=== PATIENT | female | born 1970 | race African-American/Black ===

== ENCOUNTER → 2016-12-27 | Outpatient (CLI) | payer BC ==
[~2016-12-27] MED LIST: LISI1TAB7 PO
[2016-12-27 14:57] LABS: BASO # 0.1 x10^3/uL (0.0-0.2); BASO % 2 % (0-3); EOS % 2 % (0-3); HEMATOCRIT 37.8 % (36.0-47.0); HEMOGLOBIN 12.6 g/dL (12.0-15.5); LYMPH # 2.9 x10^3/uL (1.0-4.8); LYMPH % 46 % (24-48); MEAN CORPUSCULAR HEMOGLOBIN 30 pg (25-35); MEAN CORPUSCULAR HGB CONC 33 g/dL (31-37); MEAN CORPUSCULAR VOLUME 89 fL (79-100); MONO % 7 % (0-9); NEUT % 43 % (31-73); PLATELET COUNT 255 x10^3/uL (140-400); RED BLOOD COUNT 4.26 x10^6/uL (3.50-5.40); RED CELL DISTRIBUTION WIDTH 13.1 % (11.5-14.5); WHITE BLOOD COUNT 6.2 x10^3/uL (4.0-11.0)
--- NOTE | 2016-12-27 15:03 | EKG ---
[facility] [address] [place] [address] Test Date: 2016-12-27 Test Time: 15:04:36 Pat Name: ASHLIE MCNULTY Department: Room: Gender: F Ditch Cleaner: GRANT : 1970 Requested By: KAREEM BORDEN Order Number: [id number] Reading MD: Agapito Miller Measurements Intervals Austin Rate: 67 P: 52 NH: 174 QRS: 31 QRSD: 78 T: 19 QT: 426 QTc: 453 Interpretive Statements SINUS RHYTHM NON-SPECIFIC ST/T WAVE CHANGES IN THE ANTERIOR LEADS. Electronically Signed On 12-29-2016 13:07:17 CDT by Agapito Miller
[2016-12-27 15:08] LABS: CALCIUM 8.7 mg/dL (8.5-10.1); GFR 71.6
== END | disposition home or self-care (01) ==
LOC: SURGPAT 14:12
PROVIDERS: ATTEND Obstetrics & Gynecology
DX: I10 Essential (primary) hypertension (principal)
CPT/HCPCS: 36415; 80048; 85027; 93005

== ENCOUNTER 2017-01-04 07:13 | Observation (INO) | payer BC ==
[2017-01-04] VITALS (7 sets, daily range): BP systolic 115–126; BP diastolic 70–74
[~2017-01-04] VITALS: Ht 175.3 cm; Wt 83.9 kg
[~2017-01-04 07:13] MED LIST changes: +HYDROmorphone 2 MG/ML VIAL IV PRN; +IV RINGERS,LACTATED 1000ML 1,000 ML IV SCH; +LIDOCAINE 1% 1 ML SYRINGE. ID PRN; +MORPHINE SULFATE 2 MG/ML DISP.SYRIN. IV PRN; +ONDANSETRON PF 4 MG/2 ML VIAL. IV PRN; +PROCHLORPERAZINE 10 MG/2 ML VIAL. IV PRN; +fentaNYL PF VIAL 100 MCG/2 ML VIAL IV PRN
[2017-01-04] MEDS ORDERED: ESTROGENS, CONJ VAGINAL CREAM 30GM TUBE. ONE (07:38)
[2017-01-04] MEDS ORDERED: BUPIVACAINE-EPI 0.25%-1:200000 50 ML VIAL. ONE ×2 (07:38→07:39)
[2017-01-04] MEDS ORDERED: 0.9 % SODIUM CHLORIDE 50 ML VIAL. IJ ONE (07:39)
[2017-01-04 07:47] LABS: NEG OBC UR NEG; POS OBC UR POS
[2017-01-04] MEDS ORDERED: DEXAMETHASONE SOD PHOS 20 MG/5 ML VIAL. ONE (07:57)
[2017-01-04] MEDS ORDERED: PROPOFOL 20 ML IV ONE (07:57)
[2017-01-04] MEDS ORDERED: ONDANSETRON PF 4 MG/2 ML VIAL. ONE (07:57)
[2017-01-04] MEDS ORDERED: FAMOTIDINE 20 MG/2 ML VIAL ONE (07:57)
[2017-01-04] MEDS ORDERED: LIDOCAINE 2% PF Vial for OR 5 ML VIAL. ONE (07:57)
[2017-01-04] MEDS ORDERED: MIDAZOLAM HCL/PF 2 MG/2 ML VIAL. ONE (07:58)
[2017-01-04] MEDS ORDERED: ROCURONIUM 50 MG/5 ML VIAL. ONE (07:58)
[2017-01-04] MEDS ORDERED: fentaNYL PF VIAL 100 MCG/2 ML VIAL ONE (07:58)
[2017-01-04] MEDS ORDERED: KETOROLAC 60 MG/2 ML INJ FOR OR. ONE (08:58)
[2017-01-04] MEDS ORDERED: SEVOFLURANE > 120 MINUTES. IH ONE (09:38)
[2017-01-04] MEDS ORDERED: GLYCOPYRROLATE 1 MG/5 ML VIAL. ONE (09:52)
[2017-01-04] MEDS ORDERED: NEOSTIGMINE METHYLSULFATE 5 MG/5 ML SYRINGE. ONE (09:53)
--- NOTE | 2017-01-04 10:02 | DISCH ---
DISCHARGE INSTRUCTIONS Condition on Discharge Condition on Discharge: Stable Activity After Discharge Activity Instructions for Disc: Activity as tolerated, Avoid exertion, Progressive ambulation Lifting Instructions after Dis: No heavy lifting, Do not lift >10 pounds Exercise Instruction after Dis: Progress as tolerated Driving Instructions after Dis: No driving for 2 weeks Weight Bearing Status after Di: Full weight bearing, As tolerated Diet after Discharge Diet after Discharge: Regular Diet Texture: Regular Wound Incision Care Wound/Incision Care: Ice to area for comfort, May get incision wet Contacting the DR. after DC Call your doctor for: If your condition worsens Follow-Up Follow up with: as scheduled in office 2 weeks KAREEM BORDEN MD Jan 04, 2017 10:02
--- NOTE | 2017-01-04 10:04 | PDOC ---
BRIEF OPERATIVE NOTE Date: Jan 04, 2017 Pre-Op Diagnosis cystocele, uterine prolapse Post-Op Diagnosis same Procedure Performed LAVH, BSO, anterior repair Surgeon Smita Business Process Modeler John Anesthesiologist Nicolle Anesthesia Type: General Blood Loss 60cc IV Fluid see anesthesia report Urine Output 150cc- clear Specimens Obtained uterus, tubes, ovaries, vaginal mucosa Findings see dictation Complications none KAREEM BORDEN MD Jan 04, 2017 10:04
[2017-01-04] MEDS ORDERED: diphenhydrAMINE 50 MG/ML VIAL IV PRN (10:15)
[2017-01-04] MEDS ORDERED: METOCLOPRAMIDE HCL 10 MG/2 ML VIAL. IV PRN (10:15)
[2017-01-04] MEDS ORDERED: diphenhydrAMINE HCL 25 MG CAPSULE PO PRN (10:15)
[2017-01-04] MEDS ORDERED: HYDROmorphone 2 MG/ML VIAL IV PRN (10:15)
[2017-01-04] MEDS ORDERED: HYDROmorphone 2 MG/ML VIAL IM PRN (10:15)
[2017-01-04] MEDS ORDERED: HYDROcodone/APAP 5/325MG 1 TAB TABLET PO PRN (10:15)
[2017-01-04] MEDS ORDERED: 0.9 % SODIUM CHLORIDE 10 ML DISP.SYRIN. IV PRN (10:15)
[2017-01-04] MEDS ORDERED: KETOROLAC TROMETHAMINE 30 MG/ML INJ. IV PRN (10:15)
[2017-01-04] MEDS ORDERED: ALBUTEROL SULFATE 2.5 MG/3 ML NEBU. NEB PRN (10:15)
[2017-01-04] MEDS ORDERED: BISACODYL 10 MG SUPP.RECT. PR PRN (10:15)
[2017-01-04] MEDS ORDERED: NALOXONE 0.4 MG/ML VIAL. IV PRN (10:15)
[2017-01-04] MEDS ORDERED: MAG HYDROX/ALUMINUM HYD/SIMETH 30 ML ORAL.SUSP PO PRN (10:15)
[2017-01-04] MEDS ORDERED: LACTULOSE 20 GM/30 ML SOLUTION. PO PRN (10:15)
[2017-01-04] MEDS ORDERED: ZOLPIDEM 5 MG TABLET. PO PRN (10:15)
[2017-01-04] MEDS ORDERED: ESTRADIOL WEEKLY 0.1 MG PATCH. TD ONE (10:15)
[2017-01-04] MEDS ORDERED: ONDANSETRON PF 4 MG/2 ML VIAL. IV PRN (10:15)
[2017-01-04] MEDS ORDERED: CALCIUM CARBONATE 500 MG TAB.CHEW PO PRN (10:15)
[2017-01-04] MEDS ORDERED: SIMETHICONE 80 MG TAB.CHEW PO PRN (10:15)
[2017-01-04] MEDS: fentaNYL PF VIAL 100 MCG/2 ML VIAL IV PRN ×4 (10:17→11:11)
--- NOTE | 2017-01-04 11:01 | PDOC4 ---
Operative Note Operative Note Preoperative diagnosis: Uterine prolapse and cystocele Postoperative diagnosis: Same Procedure: LAVH and BSO and anterior repair Surgeon: Smita Television Repair Teacher: John Anesthesia: Gen. Estimated blood loss: 60 mL Urine output 125 mL Complications: none Procedure: After informed consent was obtained the patient was taken to the operating room and given a smooth induction of anesthesia without complications. She was placed in lithotomy position and her legs were placed in Bob stirrups. She received 2 g of Ancef prior to the beginning of the procedure. A bivalve speculum was placed in the vagina and the anterior lip of the cervix was grasped with a single-tooth tenaculum. The cervicovaginal junction was infiltrated with quarter percent Marcaine with epinephrine at 2, 4 , 8, and 10:00 on the cervix. A Valchev uterine manipulator was placed through the cervical os and attached to the tenaculum. The speculum was then removed. A Laguna catheter had been previously placed. We went above and a 5 mm incision was made at the umbilicus. The bladeless trocar was placed onto this incision. We used the Truecaller technology. The camera confirmed good trocar placement. 2 lateral ports were also placed under direct visualization. The patient was placed in Trendelenburg and the uterus was visualized. A LigaSure was used to cauterize across the round ligaments bilaterally. These ligaments were transected and the bladder flap was created anteriorly. We then elevated the tubes on both sides and visualize the ureters. We cauterized across the infundibulopelvic ligaments bilaterally. We then proceeded to cauterize the uterine arteries on both sides. We did this down to the level of the uterosacral ligaments. We then went below and a speculum was placed in the vagina. The tenaculum and uterine manipulators were removed. We then created a circumferential incision around the cervix. This was done with a knife. We then retracted the bladder superiorly using blunt dissection with a Ray-Juan Manuel. We entered the posterior peritoneum using Metzenbaum scissors and tag the peritoneum to the posterior vaginal wall. This was saved for later use. We then proceeded to clamp cut and ligate the uterosacral ligaments using Mary Jo transfixion sutures. These were tagged to the lateral vaginal sidewalls and saved for later use. Once the uterus was free it was removed from the pelvis. The peritoneum was then closed with a pursestring suture of 2-0 Vicryl. We then proceeded with the anterior repair. 2 De Witt clamps were placed on the anterior vaginal edges and the anterior vaginal wall was infiltrated with a solution of quarter percent Marcaine with epinephrine and injectable saline. This was done for hemostasis and to help delineate the surgical planes. The vagina was then opened in the midline and tagged with Allis clamps. The bladder and perivaginal tissue was retracted. This was done with a Ray-Juan Manuel. Several [id number] mattress sutures were placed to reduce the cystocele. The vagina was then trimmed and closed in the midline with a running locking stitch of 2-0 Vicryl. Once the vagina was closed we went back above to irrigate the pelvis. The pelvis was irrigated and no bleeding was noted. We sprayed Maurice on the raw surfaces to help with hemostasis. Again no bleeding was noted. We then removed the ports under direct visualization and allowed the gas to escape the ports were closed with an interrupted suture of 4-0 nylon. The subcutaneous tissue was infiltrated with anesthetic for patient comfort. The patient tolerated the procedure well AND SPONGE COUNTS WERE CORRECT AT THE END OF THE CASE. THERE WERE NO COMPLICATIONS. KAREEM BORDEN MD Jan 04, 2017 11:01
[2017-01-04] MEDS: IBUPROFEN 600 MG TABLET. PO PRN (19:41)
[2017-01-05 02:00] VITALS: BP 106/58
[2017-01-05 06:52] VITALS: BP 118/75
--- NOTE | 2017-01-05 08:44 | PDOC ---
SURGICAL PROGRESS NOTE Subjective Doing well. Mild pain. Ambulating and tolerating regular diet. No nausea. Just had catheter taken out and hasn't voided yet. Vital Signs Vital Signs Date Time Temp Pulse Resp B/P (MAP) Pulse Ox O2 Delivery O2 Flow Rate FiO2 01/05/17 06:52 97.7 61 18 118/75 (89) 96 Room Air 97.7 01/04/17 12:00 2.0 I&O Intake and Output 01/05/17 07:00 Intake Total 2550 ml Output Total 1300 ml Balance 1250 ml Intake Oral 1500 ml IV Total 1050 ml Output Urine Total 1300 ml PATIENT HAS A JAUREGUI: No General: Alert, Oriented X3, Cooperative, No acute distress HEENT: Mucous membr. moist/pink Abdomen: Other (incision c/d/i) Extremities: No clubbing, No cyanosis, No edema, Normal pulses, No tenderness/ swelling Skin: No rashes, No breakdown, No significant lesion Labs Laboratory Tests Test 01/04/17 07:15 01/04/17 14:55 Urine Test Negative (NEG) Hematocrit 37.6 % (36.0-47.0) Laboratory Tests Test 01/04/17 14:55 Hematocrit 37.6 % (36.0-47.0) I have reviewed the following labs, vitals Problem List [facility] repair. Plan for discharge today Problems: KAREEM BORDEN MD Jan 05, 2017 08:44
--- NOTE | 2017-01-05 08:48 | PDOC3 ---
Discharge Summary Visit Information Date of Admission: Jan 04, 2017 Date of Discharge: Jan 05, 2017 Admitting Diagnosis: pelvic organ prolapse Final Diagnosis same Brief Hospital Course Allergies Allergies Coded Allergies Type Severity Reaction Last Updated Verified titanium Allergy Mild 01/04/17 Yes Vital Signs Vital Signs Date Time Temp Pulse Resp B/P (MAP) Pulse Ox O2 Delivery O2 Flow Rate FiO2 01/05/17 06:52 97.7 61 18 118/75 (89) 96 Room Air 97.7 01/04/17 12:00 2.0 Lab Results Laboratory Tests Test 01/04/17 07:15 01/04/17 14:55 Urine Test Negative (NEG) Hematocrit 37.6 % (36.0-47.0) Laboratory Tests Test 01/04/17 14:55 Hematocrit 37.6 % (36.0-47.0) Brief Hospital Course Ms. Benitez is a 46 old F who presented with Pelvic organ prolapse. She presented yesterday for [facility] with bso and anterior repair. SHe did well in surgery. Today, she is ambulating and eating regular diet. Her catheter was just removed this morning, so she hasn't voided yet. Her VS are stable and her hct is stable. She is having minimal bleeding. SHe is ready for discharge pending urination. She wants to continue the climara patches until post op. Discharge Information Scheduled Lisinopril/Hydrochlorothiazide (Lisinopril-Hctz 20-25 Mg Tab), 1 TAB PO DAILY, ( Reported) KAREEM BORDEN MD Jan 05, 2017 08:48
[2017-01-05] MEDS: oxyCODONE/APAP 5/325 1 TAB TABLET PO PRN ×2 (08:51→14:19)
[2017-01-05] MEDS ORDERED: LISINOPRIL 20 MG TABLET PO SCH (09:00)
[2017-01-05] MEDS ORDERED: hydroCHLOROthiazide 25 MG TABLET PO SCH (09:00)
[2017-01-05] MEDS ORDERED: NON FORMULARY ITEM (Lisinopril/Hydrochlorothiazide (Lisinopril-Hctz 20-25 Mg Tab) 1 TAB) PO SCH (09:00)
[2017-01-05 11:10] VITALS: BP 119/74
[2017-01-05] MEDS: IBUPROFEN 600 MG TABLET. PO PRN (14:20)
--- NOTE | 2017-01-05 15:23 | PATHOLOGY ---
PATHOLOGY REPORT * * * * * * * * FINAL DIAGNOSIS: Uterus, cervix, both fallopian tubes and ovaries and vaginal mucosa, hysterectomy and bilateral salpingo-oophorectomy: - Uterine cervix with moderate chronic cervicitis and with squamous metaplasia. - Disordered proliferative phase endometrium without any evidence of hyperplasia or malignancy. - Adenomyoses. - Submucosal leiomyoma without any significant atypia, increased mitoses or necrosis. - Right fallopian tube and ovary with no diagnostic changes. - Left fallopian tube and ovary with no diagnostic changes. - Vaginal mucosa with no diagnostic changes. (SHA:[email or web address]; 01/05/2017) REPORT ELECTRONICALLY SIGNED BY: Vel Sorensen M.D. DATE/TIME: 01/05/2017 15:21 * * * * * * * * GROSS PATHOLOGY: The specimen is received in formalin labeled "Walltower, Ashlie, Uterus, cervix, bilateral tubes and ovaries". Received is a 10.6 x 7.0 x 3.8 cm 152 g uterus with attached cervix. The uterine serosa is paly yellow perea. "The 1.7 cm linear cervical os is surrounded by yellow perea ectocervical mucosa. The uterus is oriented using the peritoneal reflection and the anterior paracervical margin is inked black. The uterus is opened laterally to reveal a yellow perea, corrugated endocervical canal measuring 2.9 cm in length. The endometrial cavity is somewhat distorted by a 2.5 cm submucosal fibroid measuring 4.0 cm in length by 3.1 cm in width. The endometrium is reddish brown and granular in appearance and measures 0.3 in thickness. Serial sectioning reveals a yellow perea, trabeculated myometrium measuring 1.8 cm in thickness. The right adnexa consists of a previously ligated fimbriated fallopian tube measuring 3.2 cm in length by up to 0.5 cm in diameter attached to a 2.9 x 1.3 x 0.8 cm ovary. Sectioning through the fallopian tube reveals a pinpoint lumen and the fallopian tube otherwise appears grossly unremarkable. Sectioning through the ovary reveals yellow perea cut surface. The left adnexa consists of a previously ligated fimbriated fallopian tube measuring 3.2 cm in length by up to 0.4 cm in diameter attached to a 3.0 x 1.8 x 0.8 cm 3.5 g ovary. Sectioning through the fallopian tube reveals a pinpoint lumen and the fallopian tube otherwise appears grossly unremarkable. Sectioning through the ovary reveals a yellow perea cut surface. Also within the specimen container are 3 wrinkled segments of yellow perea vaginal mucosa, ranging from 1.0 up to 3.5 cm in length. There are no masses or lesions noted grossly. Paste Maker sections are submitted as follows: A1- anterior and posterior cervix A2- anterior endomyometrium A3-4- posterior myometrium and submucosal fibroid A5- guest services representative sections from right adnexa and vaginal mucosa A6- guest services representative sections from left adnexa (SHA; 01/04/17) INITIAL CPT CODE(S): 50392 Professional services performed by [facility] at [address] [address] Technical services performed by [facility] at [address] [place] [address], [address], [place] [address]. SPECIMEN(S) RECEIVED: A.Uterus, cervix, bilateral tubes and ovaries, vaginal mucosa CLINICAL HISTORY: Urinary stress, incontinence, cystocele, uterine prolapse PATIENT: ASHLIE MCNULTY /AGE: 11 1970 (Age: 46) PATIENT #: [id number] ALT CASE #: SPECIMEN COLLECTION DATE: 01/04/2017 SPECIMEN RECEIVED DATE: 01/04/2017 [facility] - [id number] [address] - PHONE: [phone] * * * END OF REPORT * * *
[2017-01-05 16:30] VITALS: BP 131/90
== END 2017-01-05 18:00 | disposition home or self-care (01) ==
LOC: SURG 07:13 → EDUNIT# 08:30 → 3 NORTH 10:04
PROVIDERS: ADMIT Obstetrics & Gynecology; ATTEND Obstetrics & Gynecology
DX: N81.4 Uterovaginal prolapse, unspecified (principal)
CPT/HCPCS: 36415; 58552; 81025; 85014; 86850; 86900; 86901; 88307; 96372; C1769; G0378; G0379; J1100; J1170; J1885; J2001; J2250; J2405; J2704; J2710; J3010; J3490; J7030; J7120; S0028; J0780

== ENCOUNTER → 2019-12-05 | Outpatient (CLI) | payer BC ==
[~2019-12-05] MED LIST changes: -HYDROmorphone 2 MG/ML VIAL IV PRN; -IV RINGERS,LACTATED 1000ML 1,000 ML IV SCH; -LIDOCAINE 1% 1 ML SYRINGE. ID PRN; +LISI1TAB20 PO; -LISI1TAB7 PO; -MORPHINE SULFATE 2 MG/ML DISP.SYRIN. IV PRN; -ONDANSETRON PF 4 MG/2 ML VIAL. IV PRN; -PROCHLORPERAZINE 10 MG/2 ML VIAL. IV PRN; -fentaNYL PF VIAL 100 MCG/2 ML VIAL IV PRN
--- NOTE | 2019-12-05 08:40 | RAD ---
EXAM: Abdomen sonogram. HISTORY: Pain. TECHNIQUE: Sonographic imaging of the abdomen was performed. COMPARISON: None. FINDINGS: The liver is normal in size. No focal hepatic lesion is seen. The gallbladder is unremarkable. The common bile duct is normal in caliber. There is a cyst with suspected internal septation within the upper pole the right kidney measuring 4.4 cm. There is no hydronephrosis. The spleen is normal in size. The pancreas, aorta and inferior vena cava are unremarkable. IMPRESSION: 1. 4.4 cm complicated cyst with internal septation within the superior right kidney. Short-term sonographic follow-up or a renal protocol CT or MRI can be performed to confirm benignity. 2. Otherwise, unremarkable abdomen sonogram. Electronically signed by: Dolores Jaramillo MD (12/05/2019 8:37 AM) [id number]
== END | disposition home or self-care (01) ==
LOC: US 06:45
PROVIDERS: ATTEND Nurse Practitioner Women's Health
DX: N28.1 Cyst of kidney, acquired (principal)
CPT/HCPCS: 76700